=== PATIENT | female | born 1940 | race Caucasian/White ===

== ENCOUNTER 2017-05-18 08:55 | Day surgery (SDC) | payer OTHER, BC ==
[~2017-05-18] VITALS: Ht 152.4 cm; Wt 84.0 kg
[~2017-05-18 08:55] MED LIST: CALCIUM 500 +1 EACH PO; CO Q-10200 MG PO; LEVEMIR FL100 UNIT/1 SC; LOPRESSOR25 MG PO; MAGNESIUM250 MG PO; NORVASC5 MG PO; NOVOLOG 10100 UNITS/ SC; PEPCID20 MG PO; ROCALTROL0.25 MCG PO; VITAMIN D31000 UNIT PO; ZYLOPRIM100 MG PO
[2017-05-18 09:41] VITALS: BP 178/71
[2017-05-18 09:47] LABS: HEMATOCRIT 33.5 % (36.0-46.0); MCH 31.4 PG (29.0-34.0); MCHC 31.9 G/DL (30.0-36.0); MCV 98.2 FL (83-99); MEAN PLAT.VOLUME 9.5 uM^3 (9.5-12.4); PLATELET COUNT 164 K/uL (156-360); RBC DIS.WIDTH-CV 13.4 % (11.8-14.6); RBC DIS.WIDTH-SD 47.3 % (39-53); RED BLOOD COUNT 3.41 M/uL (3.80-5.20); WHITE BLOOD COUNT 8.4 K/uL (4.1-10.2)
[2017-05-18 11:05] LABS: POINT-OF-CARE METER ID UU13113694
[2017-05-18 13:11] LABS: POINT-OF-CARE METER ID UU13113675
[2017-05-18 13:43] VITALS: BP 182/84
[2017-05-18 14:15] VITALS: BP 157/68
== END 2017-05-18 14:30 | disposition home or self-care (01) ==
LOC: SDC 08:55 → 2SOUTH 13:56 → SDC 13:56 → EDSTATUS 13:56 → SDC 14:30
PROVIDERS: Surgery
PROC: 05BC0ZZ Excision of Left Basilic Vein, Open Approach (ICD-10-PCS; principal; 2017-05-18)
PROC: 031809D Bypass Left Brachial Artery to Upper Arm Vein with Autologous Venous Tissue, Open Approach (ICD-10-PCS; principal; 2017-05-18)
DX: I12.0 Hypertensive chronic kidney disease with stage 5 chronic kidney disease or end stage renal disease (principal); E11.22 Type 2 diabetes mellitus with diabetic chronic kidney disease; N18.6 End stage renal disease; Z79.4 Long term (current) use of insulin; Z83.3 Family history of diabetes mellitus; Z82.49 Family history of ischemic heart disease and other diseases of the circulatory system; Z82.3 Family history of stroke
CPT/HCPCS: 82948; 85027; J0690; J1644; J2720; J3010

== ENCOUNTER 2017-07-17 09:28 | Day surgery (SDC) | payer OTHER, BC ==
[~2017-07-17] VITALS: Ht 152.4 cm; Wt 82.0 kg
[2017-07-17 10:40] LABS: POINT-OF-CARE METER ID UU13113696
== END 2017-07-17 12:45 | disposition home or self-care (01) ==
LOC: CATH 09:28
PROVIDERS: Surgery
DX: T82.858A Stenosis of other vascular prosthetic devices, implants and grafts, initial encounter (principal); I12.0 Hypertensive chronic kidney disease with stage 5 chronic kidney disease or end stage renal disease; E11.22 Type 2 diabetes mellitus with diabetic chronic kidney disease; N18.6 End stage renal disease; Z99.2 Dependence on renal dialysis; Z85.43 Personal history of malignant neoplasm of ovary; Z95.2 Presence of prosthetic heart valve; Z96.653 Presence of artificial knee joint, bilateral; Z82.49 Family history of ischemic heart disease and other diseases of the circulatory system; Z82.3 Family history of stroke; Z83.3 Family history of diabetes mellitus; Y83.2 Surgical operation with anastomosis, bypass or graft as the cause of abnormal reaction of the patient, or of later complication, without mention of misadventure at the time of the procedure
CPT/HCPCS: 82948; C1725; C1769; C1874; C1894; J1644; J2250; J3010